=== PATIENT | female | born 1995 | race Caucasian/White ===

== ENCOUNTER 2018-05-21 17:43 | Emergency (ER) | payer OTHER ==
[2018-05-21 18:38] LABS: HEMATOCRIT 40.6 % (36.0-47.0); HEMOGLOBIN 13.2 g/dl (12.0-15.5); MEAN CORPUSCULAR HEMOGLOBIN 30.7 pg (27.0-33.0); MEAN CORPUSCULAR HGB CONC 32.5 g/dl (32.0-36.5); MEAN CORPUSCULAR VOLUME 94.4 fl (80.0-96.0); PLATELET COUNT, AUTOMATED 328 10^3/uL (150-450); RED CELL DISTRIBUTION WIDTH 13.2 % (11.5-14.5); WHITE BLOOD COUNT 9.6 10^3/uL (4.0-10.0)
[2018-05-21 18:47] LABS: KETONE, URINE AUTO RFX NEGATIVE (NEGATIVE); MUCUS, URINE RFX SMALL (NEGATIVE); NITRITE, URINE AUTO RFX NEGATIVE (NEGATIVE); RBC, URINE AUTO RFX 1 /HPF (0-3); SPECIFIC GRAVITY UR AUTO RFX 1.017 (1.002-1.035); SQUAM EPITHELIAL CELL UR AURFX 5 /HPF (0-6); WBC, URINE AUTO RFX 2 /HPF (0-3)
[2018-05-21 19:00] LABS: LEUKOCYTE ESTERASE UR AUTO RFX TRACE (NEGATIVE)
[2018-05-21 19:36] LABS: HCG, SERUM QUANTITATIVE 2905 MIU/ML
[2018-05-21 22:03] LABS: CHLAMYDIA DNA AMPLIFICATION NEGATIVE (NEGATIVE); GC DNA AMPLIFICATION NEGATIVE (NEGATIVE)
== END 2018-05-21 22:05 | disposition home or self-care (01) ==
LOC: M ED 17:43
DX: O20.0 Threatened abortion (principal); O20.8 Other hemorrhage in early pregnancy; O34.61 Maternal care for abnormality of vagina, first trimester; Z72.0 Tobacco use; Z3A.01 Less than 8 weeks gestation of pregnancy
CPT/HCPCS: 76801

== ENCOUNTER → 2018-05-23 | Outpatient (CLI) | payer OTHER ==
[2018-05-23 18:41] LABS: HCG, SERUM QUANTITATIVE 5404 MIU/ML
== END ==
LOC: M LAB 17:31
DX: Z32.00 Encounter for pregnancy test, result unknown (principal)
CPT/HCPCS: 84702

== ENCOUNTER → 2018-06-12 | Outpatient (REF) | payer OTHER ==
[2018-06-12 14:05] LABS: HEMATOCRIT 38.9 % (36.0-47.0); MEAN CORPUSCULAR HEMOGLOBIN 30.7 pg (27.0-33.0); MEAN CORPUSCULAR HGB CONC 33.4 g/dl (32.0-36.5); MEAN CORPUSCULAR VOLUME 91.7 fl (80.0-96.0); PLATELET COUNT, AUTOMATED 258 10^3/uL (150-450); RED BLOOD COUNT 4.24 10^6/uL (4.00-5.40); RED CELL DISTRIBUTION WIDTH 12.7 % (11.5-14.5); WHITE BLOOD COUNT 12.2 10^3/uL (4.0-10.0)
[2018-06-12 15:15] LABS: HCG, SERUM QUANTITATIVE 73957 MIU/ML
[2018-06-13 10:47] LABS: HBsAg Prenatal NEGATIVE (NEGATIVE); RUBELLA IgG QUALITATIVE IMMUNE (IMMUNE)
[2018-06-13 11:15] LABS: HEPATITIS C VIRUS ABY INDEX 0.1 INDEX (<0.8)
[2018-06-13 11:16] LABS: HIV 1&2 SCREEN CENTAUR NEGATIVE (NEGATIVE)
== END ==
LOC: M LAB REF 13:28
DX: O36.80X0 Pregnancy with inconclusive fetal viability, not applicable or unspecified (principal)
CPT/HCPCS: 86762

== ENCOUNTER → 2018-09-04 | Outpatient (CLI) | payer MEDICAID, OTHER ==
--- NOTE | 2018-09-05 09:05 | REP ---
COMPLETE OB ULTRASOUND: 09/04/2018. Clinical history: Second trimester anatomy screen. Findings: By LMP she would be 20 weeks 1 day. There is a single intrauterine gestation in a transverse lie with head to the maternal right. Cervix is 3.9 cm long and closed. There is no anterior grade 1 placenta without previa or abruption. Amniotic fluid volume is visually normal. biometry: BPD 4.5 cm 19 weeks 4 days HC 17.8 cm 20 weeks 2 days AC 15.5 cm 20 weeks 5 days FL 3.1 cm 19 weeks 5 days HL 3.1 cm 20 weeks 2 days. This gives average ultrasound age 20 weeks 1 day with EDC 01/21/2019 and precisely matches LMP. Estimated weight is 341 grams or 12 ounces. This is 52nd percentile for this dating. Measurement ratios demonstrate the cephalic index is 0.68 with a normal range 0.7-0.86. This suggest some mild dolichocephaly anatomy screen shows heart rate 153 and regular. The cranial vault, lateral ventricles, choroid plexus, cavum septum pellucidum, cerebellum, cisterna magna were unremarkable. The nose and lips view seen but the profile is not optimal. lungs, four-chamber heart view, ventricular outflow tracts, diaphragm, left-sided stomach bubble, three-vessel cord with cord insertion, kidneys and bladder, transverse, longitudinal views of the spine and lower extremities along the upper extremities were all unremarkable. The cord at least drapes over the neck, nuchal cord is difficult to completely exclude. Impression: 1. Single intrauterine gestation in transverse position with head towards the maternal right. There is normal amniotic fluid volume, anterior grade 1 placenta without previa abruption and a closed 3.97 a long cervix. 2. Size and dates precisely matching LMP dating. She is 20 weeks 1 day by composite ultrasound today giving EDC 01/21/2019. 3. Estimated weight 52nd percentile for this dating. No anatomy anomalies are identified but the profile view of the face is incompletely visualized due to position and could be rechecked later in the second trimester. The cephalic index is slightly diminished indicating very mild dolichocephaly, no other finding. Electronically Signed by Clive Trammell MD 09/05/2018 07:44 P
== END ==
LOC: M RAD 16:45
PROVIDERS: ATTEND Obstetrics & Gynecology
DX: O32.2XX0 Maternal care for transverse and oblique lie, not applicable or unspecified (principal); Z36.89 Encounter for other specified antenatal screening; Z3A.20 20 weeks gestation of pregnancy

== ENCOUNTER 2018-10-27 12:07 | Emergency (ER) | payer OTHER ==
[~2018-10-27] VITALS: Ht 167.6 cm; Wt 71.4 kg
[2018-10-27 12:08] VITALS: BP 135/72
[2018-10-27] MEDS ORDERED: PENI500T PO (13:40)
[2018-10-27] MEDS ORDERED: ACETAMINOPHEN 325 MG TAB PO ONE (13:45)
== END 2018-10-27 13:58 | disposition home or self-care (01) ==
LOC: M ED 12:07
DX: O9A.212 Injury, poisoning and certain other consequences of external causes complicating pregnancy, second trimester (principal); S02.5XXA Fracture of tooth (traumatic), initial encounter for closed fracture; X58.XXXA Exposure to other specified factors, initial encounter; Y92.89 Other specified places as the place of occurrence of the external cause; K02.9 Dental caries, unspecified; Z3A.27 27 weeks gestation of pregnancy; Z88.1 Allergy status to other antibiotic agents; Z88.2 Allergy status to sulfonamides

== ENCOUNTER → 2018-10-27 | Outpatient (CLI) | payer OTHER ==
[~2018-10-27] MED LIST: PENI500T PO
--- NOTE | 2018-10-27 19:49 | REP ---
REASON FOR EXAMINATION: Followup anatomical survey. Multiple ultrasonographic images of the gravid uterus show a single living intrauterine gestation in the cephalic presentation. Doppler interrogation of the heart shows a heart rate of 136 beats per minute. The placenta is anterior and not low lying. The subjective amniotic fluid volume is within normal limits. The cervix measures 4.1 cm in length and is closed. Evaluation of the maternal adnexal spaces showed no abnormalities. BPD 6.5 cm 26 weeks 3 days HC 25.2 cm 27 weeks 3 days AC 22.8 cm 27 weeks 1 day FL 5.0 cm 26 weeks 5 days The estimated weight is 1011 grams which is at the 25th percentile for a 27-week 5 day gestational age. The calculated amniotic fluid index is 13.1 which is within the normal range of 9.4 to 22.7. Doppler interrogation of the umbilical artery shows an AB ratio of 0.65 which is within the normal range. anatomical followup shows normal facial features, not previously seen on the prior exam. IMPRESSION:Single living intrauterine gestation as described above with an estimated gestational age of 27 weeks 0 days via composite criteria with an estimated date of delivery of 01/26/2019 by today's exam. No anomalies were detected as described above. Electronically Signed by Gilbert Kumari DO 10/28/2018 12:38 P
== END ==
LOC: M RAD 17:58
PROVIDERS: ATTEND Obstetrics & Gynecology
DX: Z34.82 Encounter for supervision of other normal pregnancy, second trimester (principal); Z3A.26 26 weeks gestation of pregnancy

== ENCOUNTER → 2018-11-10 | Outpatient (CLI) | payer OTHER ==
[2018-11-10 14:07] LABS: HEMOGLOBIN 11.9 g/dl (12.0-15.5); MEAN CORPUSCULAR HEMOGLOBIN 30.3 pg (27.0-33.0); MEAN CORPUSCULAR HGB CONC 32.2 g/dl (32.0-36.5); MEAN CORPUSCULAR VOLUME 94.1 fl (80.0-96.0); PLATELET COUNT, AUTOMATED 257 10^3/uL (150-450); RED BLOOD COUNT 3.93 10^6/uL (4.00-5.40); WHITE BLOOD COUNT 9.9 10^3/uL (4.0-10.0)
== END ==
LOC: M LAB 12:25
PROVIDERS: ATTEND Obstetrics & Gynecology
DX: Z34.82 Encounter for supervision of other normal pregnancy, second trimester (principal); Z3A.00 Weeks of gestation of pregnancy not specified

== ENCOUNTER 2018-12-23 17:25 | Outpatient (CLI) | payer OTHER ==
[~2018-12-23] VITALS: Ht 167.6 cm; Wt 74.2 kg
[2018-12-23 17:55] VITALS: BP 114/74
[2018-12-23] MEDS ORDERED: [UNRECOGNIZED DRUG - CODE] PO (17:59)
== END 2018-12-23 18:52 | disposition home or self-care (01) ==
LOC: M LDO 17:25
PROVIDERS: ATTEND Obstetrics & Gynecology
DX: O26.893 Other specified pregnancy related conditions, third trimester (principal); M54.9 Dorsalgia, unspecified; R10.30 Lower abdominal pain, unspecified; Z3A.35 35 weeks gestation of pregnancy

== ENCOUNTER 2019-01-20 20:56 | Inpatient (IN) | payer OTHER ==
[~2019-01-20] VITALS: Ht 167.6 cm; Wt 78.2 kg
[~2019-01-20 20:56] MED LIST changes: +[UNRECOGNIZED DRUG - CODE] PO
[2019-01-20] MEDS ORDERED: LACTATED RINGER'S 1000 ML IV STA (21:22)
[2019-01-20] MEDS ORDERED: LR 1,000 ML IV SCH (21:22)
[2019-01-20 21:37] LABS: HEMATOCRIT 36.7 % (36.0-47.0); HEMOGLOBIN 12.2 g/dl (12.0-15.5); MEAN CORPUSCULAR HEMOGLOBIN 30.5 pg (27.0-33.0); MEAN CORPUSCULAR HGB CONC 33.2 g/dl (32.0-36.5); MEAN CORPUSCULAR VOLUME 91.8 fl (80.0-96.0); PLATELET COUNT, AUTOMATED 251 10^3/uL (150-450); WHITE BLOOD COUNT 13.4 10^3/uL (4.0-10.0)
[2019-01-20 22:18] VITALS: BP 118/69
[2019-01-20 23:11] VITALS: BP 118/66
[2019-01-21] VITALS (35 sets, daily range): BP systolic 98–142; BP diastolic 54–86
[2019-01-21] MEDS ORDERED: FENTANYL 2MCG/ML ROPIVACAINE 0.2% IN 0.9% NACL 100ML IVBAG As Ordered ONE (01:54)
[2019-01-21] MEDS ORDERED: FENTANYL/ROPIVACAINE/NACL BAG 100 ML EPIDURAL SCH (02:30)
[2019-01-21] MEDS ORDERED: EPIDURAL COMMENT XX SCH (02:30)
[2019-01-21] MEDS ORDERED: diphenhydrAMINE INJ 50MG/ML VIAL (J1200) IV PRN (02:30)
[2019-01-21] MEDS ORDERED: ePHEDrine SULFATE 25 MG/5 ML(5MG/ML) SYRINGE IV PRN (02:30)
[2019-01-21] MEDS ORDERED: ONDANSETRON 4MG/2ML VIAL (J2405) IV PRN (02:30)
[2019-01-21] MEDS ORDERED: LACTATED RINGER'S 1000 ML IV PRN (02:30)
[2019-01-21] MEDS ORDERED: EPIDURAL/PCA KEYS XX PRN (02:30)
[2019-01-21] MEDS ORDERED: REFRIGERATOR IV KEYS XX PRN (02:30)
[2019-01-21] MEDS ORDERED: NALOXONE INJ 0.4 MG/1 ML VIAL (J2310) IV PRN (02:30)
[2019-01-21] MEDS ORDERED: OXYTOCIN 30 UNITS IN 0.9% NaCl 500ML IV BAG (J2590) As Ordered ONE (05:51)
[2019-01-21] MEDS ORDERED: OXYTOCIN DRIP 30 UNITS in APPROPRIATE DILUENT 1 EA IV SCH ×5 (06:00→07:39)
[2019-01-21 07:35] LABS: CORD GAS ABE A -6.2; CORD GAS HCO3 A 21.1 MEQ/L; CORD GAS PCO2 A 47.9 mmHg; CORD GAS PH A 7.262 UNITS; CORD GAS PO2 A 34.3 mmHg; CORD GAS SBC A 18.9 MEQ/L; CORD GAS TCO2 A 22.6 MEQ/L
[2019-01-21 07:40] LABS: CORD GAS ABE V -8.3; CORD GAS HCO3 V 20.9 MEQ/L; CORD GAS O2 SAT V 53.7 %; CORD GAS PCO2 V 56.9 mmHg; CORD GAS PH V 7.182 UNITS; CORD GAS PO2 V 26.3 mmHg; CORD GAS SBC V 16.9 MEQ/L; CORD GAS TCO2 V 22.6 MEQ/L
[2019-01-21] MEDS ORDERED: DOCUSATE SODIUM 100 MG CAP PO PRN (07:45)
[2019-01-21] MEDS ORDERED: IBUPROFEN 600 MG TAB PO PRN (07:45)
[2019-01-21] MEDS ORDERED: RHOGAM 300 MCG (1500 IU) INJ (J2790) IM SCH (07:45)
[2019-01-21] MEDS ORDERED: METHYLERGONOVINE MALEATE 0.2 MG TAB PO PRN (07:45)
[2019-01-21] MEDS ORDERED: ACETAMINOPHEN TAB 650MG DOSE (2X325MG) PO PRN (07:45)
[2019-01-21] MEDS ORDERED: MEASLES,MUMPS,RUBELLA VACCINE INJ (MMR-II) (90707) SC SCH (07:45)
[2019-01-21] MEDS ORDERED: ACETAMINOPHEN 500 MG TAB PO PRN (07:45)
[2019-01-21] MEDS ORDERED: DIBUCAINE 1% OINTMENT 30GM TOP PRN (07:45)
[2019-01-21] MEDS: PRENATAL VITAMINS CHEWABLE TABLET PO SCH (10:03)
--- NOTE | 2019-01-21 10:45 | HPE ---
DATE OF ADMISSION: 01/20/2019 Brandy is a 23-year-old female who was 1, para 0 who was admitted at 39-6/7 weeks gestation in active labor. She presented with contractions every 3-4 minutes. Upon evaluation she was found to be in active labor and a decision was made to admit the patient. Her record was reviewed which was essentially unremarkable. PAST MEDICAL HISTORY: Denies. PAST SURGICAL HISTORY: Denies. SOCIAL HISTORY: Denies any alcohol, drug or cigarette smoking. REVIEW OF SYSTEMS: Unremarkable. MEDICATIONS: - vitamin ALLERGIES: Allergies to SULFA drugs. PHYSICAL EXAMINATION: HEENT: Grossly within normal limits. Abdomen: Soft, nontender, nondistended. Extremities: No clubbing, cyanosis or edema. Vaginal exam: 4-5 cm dilated, 100% effaced, fetus at -2 station, vertex position. Category 1 tracing noted. Contractions every 3-4 minutes. ASSESSMENT: Intrauterine at 39-6/7 weeks gestation in active labor. PLAN: Admit to labor and delivery. Routine labs sent. Pain management discussed. The patient opts for an epidural. Will continue to monitor. Anticipate delivery.
--- NOTE | 2019-01-21 15:14 | DN ---
DATE OF DELIVERY: 01/21/2019 Akiko is a 23-year-old female who is admitted at 39-5/7 weeks gestation in active labor. She progressed to fully dilated. Had a spontaneous decel down to 60-70 beats per minute with good recovery. She then pushed and delivered a live male in occiput posterior position with nuchal cord times one, score 7, 10. weight 7 pounds 2 ounces. Placenta delivered spontaneously intact. Three-vessel cord. First-degree midline perineal laceration noted, which was repaired using #2-0 chromic. Estimated blood loss 300 mL. Both mother and baby in stable condition.
[2019-01-21] MEDS: IBUPROFEN 800 MG TAB PO PRN (18:39)
[2019-01-22 06:00] VITALS: BP 101/57
[2019-01-22] MEDS: PRENATAL VITAMINS CHEWABLE TABLET PO SCH (09:45)
[2019-01-22] MEDS: IBUPROFEN 800 MG TAB PO PRN ×2 (09:45→18:20)
[2019-01-22 18:00] VITALS: BP 119/81
[2019-01-23 06:00] VITALS: BP 111/64
[2019-01-23] MEDS: PRENATAL VITAMINS CHEWABLE TABLET PO SCH (08:27)
== END 2019-01-23 11:25 | disposition home or self-care (01) | DRG 560 ==
LOC: M LDO 20:56 → M LDI 21:16 → M OBS 01-21 09:19
PROVIDERS: ADMIT Obstetrics & Gynecology; ATTEND Obstetrics & Gynecology
PROC: 10E0XZZ Delivery of Products of Conception, External Approach (ICD-10-PCS; principal; 2019-01-21)
PROC: 0HQ9XZZ Repair Perineum Skin, External Approach (ICD-10-PCS; 2019-01-21)
DX: O69.81X0 Labor and delivery complicated by cord around neck, without compression, not applicable or unspecified (principal); Z3A.39 39 weeks gestation of pregnancy; Z37.0 Single live birth; O70.0 First degree perineal laceration during delivery

== ENCOUNTER → 2019-03-03 | Outpatient (CLI) | payer OTHER ==
--- NOTE | 2019-03-03 19:33 | REP ---
RIGHT HAND SERIES, FOUR VIEWS: Four views of the right hand performed. There is a nondisplaced fracture of the distal fourth metacarpal. There appears to be mild anterior angulation. No other acute fracture or dislocation is seen of the visualized osseous structures. IMPRESSION: Nondisplaced mildly angulated fracture of distal fourth metacarpal. Electronically Signed by Charli Mantilla MD 03/04/2019 02:33 P
== END ==
LOC: M ADAMS 16:58
PROVIDERS: ATTEND Physician Assistant Medical
DX: S62.344A Nondisplaced fracture of base of fourth metacarpal bone, right hand, initial encounter for closed fracture (principal); X58.XXXA Exposure to other specified factors, initial encounter; Y92.89 Other specified places as the place of occurrence of the external cause

== ENCOUNTER → 2021-05-11 | Outpatient (REF) | LOC: M LABSMTC 10:13 | PROVIDERS: ATTEND Pediatrics | DX: Z11.52 Encounter for screening for COVID-19 (principal) ==

== ENCOUNTER → 2022-05-29 | Outpatient (CLI) | payer OTHER ==
[2022-05-29 17:19] LABS: FREE T4 1.15 NG/DL (0.89-1.76); HCG, SERUM QUANTITATIVE 2.59999 MIU/ML (<4.2); PROLACTIN 7.4 NG/ML; THYROID STIMULATING HORMONE 1.146 uIU/ML (0.55-4.78)
[2022-05-29 18:41] LABS: HEMOGLOBIN A1c 4.7 % (4.0-6.0)
== END ==
LOC: M PLALAB 09:30
PROVIDERS: ATTEND Advanced Practice Midwife
DX: N64.3 Galactorrhea not associated with childbirth (principal); N92.1 Excessive and frequent menstruation with irregular cycle

== ENCOUNTER → 2023-02-12 | Outpatient (CLI) | payer OTHER | LOC: M PLALAB 10:14 | PROVIDERS: ATTEND Advanced Practice Midwife | DX: Z34.90 Encounter for supervision of normal pregnancy, unspecified, unspecified trimester (principal) ==

== ENCOUNTER → 2023-02-14 | Outpatient (CLI) | payer OTHER | LOC: M PLALAB 13:30 | PROVIDERS: ATTEND Advanced Practice Midwife | DX: Z34.90 Encounter for supervision of normal pregnancy, unspecified, unspecified trimester (principal) ==

== ENCOUNTER → 2023-03-01 | Outpatient (CLI) | payer OTHER | LOC: M RAD 10:46 | PROVIDERS: ATTEND Advanced Practice Midwife | DX: O20.0 Threatened abortion (principal); Z3A.01 Less than 8 weeks gestation of pregnancy ==

== ENCOUNTER → 2023-03-05 | Outpatient (CLI) | payer OTHER | LOC: M PLALAB 13:08 | PROVIDERS: ATTEND Advanced Practice Midwife | DX: O03.9 Complete or unspecified spontaneous abortion without complication (principal) ==

== ENCOUNTER → 2023-03-20 | Outpatient (CLI) | payer OTHER | LOC: M PLALAB 15:06 | PROVIDERS: ATTEND Advanced Practice Midwife | DX: O03.9 Complete or unspecified spontaneous abortion without complication (principal) ==

== ENCOUNTER → 2024-02-19 | Outpatient (CLI) | payer OTHER ==
[2024-02-19 18:37] LABS: HEMATOCRIT 39.8 % (36.0-47.0); MEAN CORPUSCULAR HGB CONC 32.7 g/dl (32.0-36.5); MEAN CORPUSCULAR VOLUME 91.9 fl (80.0-96.0); PLATELET COUNT, AUTOMATED 316 10^3/uL (150-450); RED BLOOD COUNT 4.33 10^6/uL (4.00-5.40)
[2024-02-19 19:19] LABS: HIV 1&2 SCREEN NEGATIVE (NEGATIVE)
[2024-02-19 19:27] LABS: HEPATITIS C VIRUS ABY INDEX < 0.02 INDEX (<0.8)
[2024-02-19 19:52] LABS: GC DNA AMPLIFICATION NEGATIVE (NEGATIVE)
== END ==
LOC: M PLALAB 15:20
PROVIDERS: ATTEND Obstetrics & Gynecology
DX: Z34.81 Encounter for supervision of other normal pregnancy, first trimester (principal)

== ENCOUNTER → 2024-04-09 | Outpatient (CLI) | payer OTHER | LOC: M RAD 06:57 | PROVIDERS: ATTEND Specialist | DX: Z34.82 Encounter for supervision of other normal pregnancy, second trimester (principal); Z3A.19 19 weeks gestation of pregnancy ==

== ENCOUNTER → 2024-05-29 | Outpatient (CLI) | payer OTHER | LOC: M RAD 09:20 | PROVIDERS: ATTEND Specialist | DX: O32.1XX0 Maternal care for breech presentation, not applicable or unspecified (principal); Z3A.26 26 weeks gestation of pregnancy ==

== ENCOUNTER → 2024-07-01 | Outpatient (CLI) | payer OTHER ==
[2024-07-01 18:10] LABS: HEMOGLOBIN 10.4 g/dl (12.0-15.5); MEAN CORPUSCULAR HEMOGLOBIN 29.7 pg (27.0-33.0); MEAN CORPUSCULAR HGB CONC 32.5 g/dl (32.0-36.5); MEAN CORPUSCULAR VOLUME 91.4 fl (80.0-96.0); PLATELET COUNT, AUTOMATED 289 10^3/uL (150-450); WHITE BLOOD COUNT 11.2 10^3/uL (4.0-10.0)
[2024-07-01 18:27] LABS: GLUCOSE CHALLENGE TEST 1 HOUR 100 MG/DL (LESS THAN 140)
[2024-07-01 18:59] LABS: HIV 1&2 SCREEN NEGATIVE (NEGATIVE)
[2024-07-01 19:07] LABS: HEPATITIS C VIRUS ABY INDEX < 0.02 INDEX (<0.8)
== END ==
LOC: M PLALAB 13:41
PROVIDERS: ATTEND Advanced Practice Midwife
DX: Z34.82 Encounter for supervision of other normal pregnancy, second trimester (principal)

== ENCOUNTER → 2024-08-20 | Outpatient (REF) | payer OTHER | LOC: M SFHCWAGY 17:03 | PROVIDERS: ATTEND Nurse Practitioner Family | DX: Z36.89 Encounter for other specified antenatal screening (principal); Z3A.38 38 weeks gestation of pregnancy ==

== ENCOUNTER → 2024-08-20 | Outpatient (CLI) | payer OTHER | LOC: M WHC 16:03 | PROVIDERS: ATTEND Nurse Practitioner Family | DX: Z34.83 Encounter for supervision of other normal pregnancy, third trimester (principal) ==

== ENCOUNTER 2025-01-19 10:33 | Day surgery (SDC) | payer OTHER ==
[~2025-01-19] VITALS: Ht 167.6 cm; Wt 76.3 kg
[2025-01-19] MEDS ORDERED: LR 1,000 ML IV SCH (10:45)
[2025-01-19] MEDS ORDERED: ROCURONIUM BROMIDE 50MG/5ML VIAL As Ordered ONE (11:07)
[2025-01-19] MEDS ORDERED: MIDAZOLAM INJ 2 MG/2 ML VIAL As Ordered ONE (11:07)
[2025-01-19] MEDS ORDERED: dexAMETHasone 4 MG/ML 1 ML VIAL As Ordered ONE (11:07)
[2025-01-19] MEDS ORDERED: ONDANSETRON 4MG 2ML VIAL As Ordered ONE (11:07)
[2025-01-19] MEDS ORDERED: LIDOCAINE 2% 100 MG/5 ML SDV (FOR ANES.) As Ordered ONE (11:07)
[2025-01-19] MEDS ORDERED: KETOROLAC 30 MG/ML 1 ML VIAL As Ordered ONE (11:10)
[2025-01-19 11:35] LABS: PLATELET COUNT, AUTOMATED 337 10^3/uL (150-450)
[2025-01-19] MEDS ORDERED: SCOPOLAMINE 1MG TRANSDERMAL PATCH TOP ONE (12:10)
[2025-01-19] MEDS: SCOPOLAMINE 1MG TRANSDERMAL PATCH As Ordered ONE (12:13)
[2025-01-19] MEDS ORDERED: ACETAMINOPHEN 1000MG/100ML IV BAG As Ordered ONE (12:29)
[2025-01-19] MEDS ORDERED: SUGAMMADEX SODIUM 500 MG/5 ML VIAL As Ordered ONE (12:50)
[2025-01-19] MEDS ORDERED: MORPHINE 2 MG/ML 1 ML VIAL IV PRN (13:00)
[2025-01-19] MEDS ORDERED: ONDANSETRON 4MG 2ML VIAL IV PRN (13:00)
[2025-01-19 14:10] VITALS: BP 123/60; TEMP 97.6; O2SAT 100
== END 2025-01-19 14:31 | disposition home or self-care (01) ==
LOC: M SDC 10:33
PROVIDERS: ATTEND Obstetrics & Gynecology
DX: Z30.2 Encounter for sterilization (principal); N83.8 Other noninflammatory disorders of ovary, fallopian tube and broad ligament; N92.6 Irregular menstruation, unspecified; Z88.2 Allergy status to sulfonamides; Z88.5 Allergy status to narcotic agent; Z91.048 Other nonmedicinal substance allergy status
CPT/HCPCS: 36415; 58661; 81025; 85027; 86850; 86900; 86901; 88302; J0131; J0665; J1100; J1885; J2250; J2405; J3010

== ENCOUNTER → 2025-02-10 | Outpatient (REF) | payer OTHER ==
[2025-02-12 14:08] LABS: HPV APTIMA Not Detected (Not Detected)
== END ==
LOC: M SFHCWAGY 15:16
PROVIDERS: ATTEND Obstetrics & Gynecology
DX: Z12.4 Encounter for screening for malignant neoplasm of cervix (principal)

== ENCOUNTER → 2025-02-15 | Outpatient (RCR) | payer OTHER | LOC: M EMPSSV 01-18 06:32 | PROVIDERS: ATTEND Family Medicine | DX: Z20.828 Contact with and (suspected) exposure to other viral communicable diseases (principal) ==